=== PATIENT | male | born 1970 | race American Indian/Alaskan Native ===

== ENCOUNTER 2021-09-25 13:29 | Emergency (ER) | payer SELFPAY ==
[2021-09-26] MEDS ORDERED: cloNIDine 0.1 MG TAB PO ONE (09:03)
[2021-09-26 09:47] LABS: Basophils % (Auto) 0.6 % (0.0-1.8); Eosinophils # (Auto) 0.1 K/mm3 (0.0-0.4); Eosinophils % (Auto) 2.2 % (0.0-4.3); Hematocrit 40.6 % (35.5-45.6); Hemoglobin 13.2 gm/dl (11.8-15.2); Lymphocytes # (Auto) 1.8 K/mm3 (1.2-5.4); Lymphocytes % (Auto) 33.4 % (13.4-35.0); Mean Corpuscular HGB Conc 33 % (32-34); Mean Corpuscular Volume 93 fl (84-94); Monocytes # (Auto) 0.4 K/mm3 (0.0-0.8); Monocytes % (Auto) 6.9 % (0.0-7.3); Platelet Count 190 K/mm3 (140-440); Red Blood Count 4.38 M/mm3 (3.65-5.03); Red Cell Distribution Width 12.5 % (13.2-15.2)
[2021-09-26 10:05] LABS: BUN/Creatinine Ratio 11; Blood Urea Nitrogen 10 mg/dL (9-20); Calcium 9.4 mg/dL (8.4-10.2); Hemolysis Index 9
[2021-09-26] MEDS ORDERED: hydrALAZINE 20 MG/1 ML INJ IV ONE (12:19)
--- NOTE | 2021-09-26 12:19 | Emergency Department Report ---
ED General Adult HPI - General Chief complaint: High BP Stated complaint: HBP Time Seen by Provider: 09/26/21 11:04 Source: patient, EMS Mode of arrival: Stretcher Limitations: No Limitations - History of Present Illness Initial comments: Patient is a 51-year-old male with history of CVA brought in from [facility] for evaluation of hypertension with reported systolic blood pressure in the 230s. He denies any symptoms. Severity scale (0 -10): 0 - Related Data Allergies Allergy/AdvReac Type Severity Reaction Status Date / Time No Known Allergies Allergy Unverified 09/25/21 14:07 ED Review of Systems ROS: Stated complaint: HBP Other details as noted in HPI Comment: All other systems reviewed and negative Constitutional: denies: chills, fever Respiratory: denies: cough, shortness of breath, wheezing Cardiovascular: denies: chest pain, palpitations Gastrointestinal: denies: abdominal pain, nausea, diarrhea Genitourinary: denies: urgency, dysuria Musculoskeletal: denies: back pain, joint swelling, arthralgia Skin: denies: rash, lesions Neurological: denies: headache, weakness, paresthesias Psychiatric: as per HPI ED Past Medical Hx - Past Medical History Previous Medical History?: Yes Hx Hypertension: Yes (noncompliant with meds) Hx CVA: Yes (deficits of mild confusion and left hand weakness) Hx Diabetes: Yes (type 2) Additional medical history: depression - Surgical History Past Surgical History?: No - Social History Smoking Status: Current Every Day Smoker ED Physical Exam - General Limitations: No Limitations General appearance: alert, in no apparent distress - Head Head exam: Present: atraumatic, normocephalic - Neck Neck exam: Present: normal inspection - Respiratory Respiratory exam: Present: normal lung sounds bilaterally. Absent: respiratory distress - Cardiovascular Cardiovascular Exam: Present: regular rate, normal rhythm, normal heart sounds - GI/Abdominal GI/Abdominal exam: Present: soft. Absent: distended, tenderness - Rectal Rectal exam: Present: deferred ED Course Vital Signs 09/25/21 09/26/21 09/26/21 14:04 07:31 07:59 Temperature 98.4 F Pulse Rate 62 55 L Respiratory 18 16 11 L Rate Blood Pressure Blood Pressure 174/82 215/100 [Left] O2 Sat by Pulse 99 100 100 Oximetry 09/26/21 09/26/21 09/26/21 08:00 08:09 08:16 Temperature Pulse Rate 49 L 48 L 48 L Respiratory 13 14 11 L Rate Blood Pressure 221/91 197/78 Blood Pressure [Left] O2 Sat by Pulse 100 100 100 Oximetry 09/26/21 09/26/21 09/26/21 08:30 08:46 09:00 Temperature Pulse Rate 51 L 49 L 50 L Respiratory 11 L 10 L 12 Rate Blood Pressure 211/94 212/89 211/89 Blood Pressure [Left] O2 Sat by Pulse 100 100 100 Oximetry 09/26/21 09/26/21 09/26/21 09:16 09:30 09:46 Temperature Pulse Rate 47 L 56 L 51 L Respiratory 9 L 12 12 Rate Blood Pressure 204/94 195/107 210/102 Blood Pressure [Left] O2 Sat by Pulse 100 100 100 Oximetry 09/26/21 09/26/21 09/26/21 09:59 10:00 10:16 Temperature Pulse Rate 50 L 55 L 54 L Respiratory 12 10 L Rate Blood Pressure 197/98 197/98 Blood Pressure [Left] O2 Sat by Pulse 100 100 Oximetry 09/26/21 09/26/21 09/26/21 10:30 10:57 11:00 Temperature Pulse Rate 50 L 50 L 46 L Respiratory 13 10 L Rate Blood Pressure 193/92 193/92 165/66 Blood Pressure [Left] O2 Sat by Pulse 96 100 100 Oximetry 09/26/21 09/26/21 11:16 11:30 Temperature Pulse Rate 46 L 46 L Respiratory 10 L 11 L Rate Blood Pressure 183/89 197/98 Blood Pressure [Left] O2 Sat by Pulse 100 100 Oximetry ED Medical Decision Making - Lab Data Result diagrams: 09/26/21 09:20 09/26/21 09:20 - Medical Decision Making Blood pressure 180s to 190s systolic. CBC and CMP unremarkable. Patient is currently asymptomatic. Recommended follow-up with PCP as soon as possible for adjustment of hypertensive medications. Critical care attestation.: If time is entered above; I have spent that time in minutes in the direct care of this critically ill patient, excluding procedure time. ED Disposition Clinical Impression: Essential hypertension Disposition: 01 HOME / SELF CARE / HOMELESS Is pt being admited?: No Does the pt Need Aspirin: No Condition: Stable Instructions: Hypertension (ED), Hypertension, Adult, [id number] Referrals: PRIMARY CARE, [Primary Care Provider] - 3-5 Days
[2021-09-26 12:40] VITALS: BP 182/67
== END 2021-09-26 12:40 | disposition home or self-care (01) ==
LOC: ED 13:29
DX: I10 Essential (primary) hypertension (principal); E11.9 Type 2 diabetes mellitus without complications; F32.9 Major depressive disorder, single episode, unspecified; F17.200 Nicotine dependence, unspecified, uncomplicated; Z79.899 Other long term (current) drug therapy
CPT/HCPCS: 36415; 80048; 85025; 99283